=== PATIENT | female | born 1960 | race African-American/Black ===

== ENCOUNTER 2017-08-23 09:57 | Outpatient (CLI) | payer BC ==
--- NOTE | 2017-08-23 11:36 | MMO ---
BILATERAL SCREENING MAMMOGRAM: DATE: 08/23/17 HISTORY: 56-year-old female for screening mammography. COMPARISON: 06/14/16, 06/02/15, 05/01/14. FINDINGS: Bilateral MLO and CC views of the breasts show scattered fibroglandular breast tissue. There is no e vidence of suspicious mass, suspicious cluster of microcalcifications, or area of architectural dist ortion. Bilateral vascular calcifications are seen. Interpretation of this mammogram was performed with the assistance of computer-aided detection. IMPRESSION: BIRADS 2: Benign Finding(s) Annual screening mammography is recommended. POS: [facility]
== END 2017-08-23 09:58 | disposition home or self-care (01) ==
LOC: SCSMAMMO 09:57 → MAMMO 09:58
PROVIDERS: ATTEND Family Medicine
DX: Z12.31 Encounter for screening mammogram for malignant neoplasm of breast (principal)
CPT/HCPCS: 77067; G0202

== ENCOUNTER 2018-09-21 10:43 | Outpatient (CLI) | payer BC | END 2018-09-21 10:44 | disposition home or self-care (01) | LOC: BICMAMMO 10:43 | PROVIDERS: ATTEND Family Medicine | DX: Z12.31 Encounter for screening mammogram for malignant neoplasm of breast (principal) | CPT/HCPCS: 77063; 77067 ==

== ENCOUNTER 2018-12-08 10:09 | Outpatient (CLI) | payer BC ==
--- NOTE | 2018-12-08 12:12 | MRI ---
MRI LUMBAR SPINE NONCONTRAST: DATE: 12/08/18 HISTORY: 58-year-old female with ICD-10: M54.16, lumbar radicular pain. COMPARISON: none FINDINGS: There are well-circumscribed, round, T2-hyperintense masses in the mid poles of both kidneys, one on each side, each on the order of 1 cm. These are statistically most likely to represent cysts. For the purposes of this report, it will be assumed that there are 5 lumbar-type vertebrae. The vert ebral body heights are maintained. Alignment is normal. Cauda equina is arranged in a symmetrical, normal distribution throughout the th ecal sac. Conus medullaris terminates at upper L2 level. Incidentally, there is a fatty filum termina le. The findings by individual levels are as follows: T12-L1: Normal. L1-2: Normal. L2-3: Normal. L3-4: Disc space maintained. Normal disc signal. Mild disc bulge. No high grade central spinal canal stenosis. Mild thecal sac stenosis. Posterior epidural fat pad. No high grade neural foraminal steno sis. L4-5: Disc desiccation. Mild disc space narrowing. Diffuse disc bulge. Moderate bilateral neural for aminal stenosis, left greater than right. Mild to moderate central spinal canal stenosis. Lateral rec ess stenosis bilaterally, left greater than right. Bilateral mild to moderate degenerative facet hype rtrophy. L5-S1: Bilateral mild to moderate degenerative facet changes. Moderate bilateral neural foraminal st enosis, left greater than right. Disc space maintained. Disc desiccation. Diffuse, prominent disc bul ge. Superimposed central and right paracentral shallow focal disc herniation in addition to the disc bulge. The disc material indents the ventral surfaces of the bilateral S1 nerve roots at the lateral recesses, especially the right, which is deformed and compressed against the right facet complex by t he disc material. The central component of the disc herniation also indents the ventral aspect of the thecal sac, and abuts the right S2 nerve root in the thecal sac. IMPRESSION: 1. Lumbar spondylosis consisting of low grade degenerative disc disease and facet osteoarthrosis at L4-5 and L5-S1, resulting in bilateral moderate neural foraminal stenosis. 2. At L5-S1, there is high grade right lateral recess stenosis where there is impingement on the rig ht S1 nerve root at the right lateral recess by right lateral component of disc herniation which comp resses that nerve root against the right facet complex. JN R POS: [facility]
== END 2018-12-08 10:10 | disposition home or self-care (01) ==
LOC: BICMRI 10:09
PROVIDERS: ATTEND Nurse Practitioner Family
DX: M47.26 Other spondylosis with radiculopathy, lumbar region (principal); M51.16 Intervertebral disc disorders with radiculopathy, lumbar region; M48.061 Spinal stenosis, lumbar region without neurogenic claudication
CPT/HCPCS: 72148

== ENCOUNTER 2019-04-25 10:28 | Outpatient (CLI) | payer BC ==
--- NOTE | 2019-04-25 11:46 | MRI ---
Exam: MRI cervical spine without contrast HISTORY: Right-sided neck pain, x4 years.. COMPARISON: 04/05/2017. FINDINGS: Appropriate T1 marrow signal intensity of the cervical vertebra. Vertebral body height is maintained . No fracture. No significant STIR hyperintensity to suggest vertebral body edema or ligamentous injury. Straightening of normal cervical lordosis similar to the previous examination is presumed to be posit ional. Visualized brain parenchyma, cervicomedullary junction, cervical cord and the upper thoracic cord have a normal size and signal intensity. C2-C3: Central disc protrusion. Mild central canal stenosis. Neural foramina are patent. C3-C4: Broad-based disc osteophyte complex abuts the ventral thecal sac. Mild central canal stenosis. Bilaterally, neural foramina are patent. C4-C5: Broad-based disc osteophyte complex with a central/left paracentral component. Stable mass eff ect upon the ventral thecal sac. Mild flattening of the cervical cord. Stable mild to moderate central canal stenosis. Right neural foramen is patent. Mild left foraminal narrowing. C5-C6: Broad-based disc osteophyte complex abuts the thecal sac. Ventral subarachnoid space is efface d. Mild central canal stenosis. Right neural foramen is patent. Moderate left foraminal narrowing. The degree of the left foraminal stenosis appears to have progressed when compared to previous exami nation. C6-C7: Central, right paracentral disc osteophyte complex. No significant stenosis of the thecal sac. Moderate right foraminal narrowing due to degenerative change of the uncovertebral joint. Mild to moderate left foraminal narrowing due to degenerative change of the uncovertebral joint. C7-T1: No significant central canal stenosis or neural foraminal narrowing. IMPRESSION: 1. Redemonstration of multilevel degenerative changes of the cervical spine as described above. Int erval progression of moderate left foraminal narrowing at C5-C6. 2. Varying degrees of central canal stenosis as detailed above. The greatest degree of central canal stenosis appears to be at C4-C5 level where there is mild to moderate central canal stenosis. Transcribed Date/Time: 04/25/2019 1:27 PM
== END 2019-04-25 10:29 | disposition home or self-care (01) ==
LOC: TBSIIMAG 10:28
PROVIDERS: ATTEND Anesthesiology Pain Medicine
DX: M48.062 Spinal stenosis, lumbar region with neurogenic claudication (principal); M47.812 Spondylosis without myelopathy or radiculopathy, cervical region
CPT/HCPCS: 72141

== ENCOUNTER 2019-09-24 10:32 | Outpatient (CLI) | payer BC ==
--- NOTE | 2019-09-24 13:58 | MMO ---
Bilateral MAMMO Bilat Screen DDI+TOM. CLINICAL HISTORY: Patient is 58 years old and is seen for screening. The patient has no family history of breast cancer. The patient has no personal history of cancer. VIEWS: The views performed were: bilateral craniocaudal with tomosynthesis and bilateral mediolateral oblique with tomosynthesis. FILMS COMPARED: The present examination has been compared to a prior imaging study performed at [facility] on 09/21/2018. This study has been interpreted with the assistance of computer-aided detection. MAMMOGRAM FINDINGS: There are scattered fibroglandular densities. There is an asymmetry seen in the inner region of the left breast. In the right breast, there are no suspicious masses, calcifications or areas of architectural distortion. IMPRESSION: ASYMMETRY IN THE LEFT BREAST REQUIRES ADDITIONAL EVALUATION. ADDITIONAL IMAGING. THE RESULTS OF THIS EXAM WERE SENT TO THE PATIENT. ACR BI-RADS Category 0 - Incomplete: Need additional imaging evaluation. [facility] will notify the patient of the need for additional imaging services. MAMMOGRAPHY NOTE: 1. A negative mammogram report should not delay a biopsy if a dominant of clinically suspicious mass is present. 2. Approximately 10% to 15% of breast cancers are not detected by mammography. 3. Adenosis and dense breasts may obscure an underlying neoplasm. Reported by: BHAVESH MISHRA MD Electonically Signed: [id number]
== END 2019-09-24 10:33 | disposition home or self-care (01) ==
LOC: BICMAMMO 10:32
PROVIDERS: ATTEND Obstetrics & Gynecology
DX: Z12.31 Encounter for screening mammogram for malignant neoplasm of breast (principal); N64.89 Other specified disorders of breast
CPT/HCPCS: 77063; 77067

== ENCOUNTER 2019-10-04 09:36 | Outpatient (CLI) | payer BC ==
--- NOTE | 2019-10-04 10:08 | MMO ---
Left Breast MAMMO Unilat Diag DDI LT+TOM. CLINICAL HISTORY: Patient is 58 years old and is seen for diagnostic exam. The patient has no family history of breast cancer. The patient has no personal history of cancer. VIEWS: The views performed were: left craniocaudal spot compression with tomosynthesis; left mediolateral oblique spot compression with tomosynthesis; and left mediolateral with tomosynthesis. FILMS COMPARED: The present examination has been compared to prior imaging studies performed at [facility] on 09/21/2018 and 09/24/2019. This study has been interpreted with the assistance of computer-aided detection. MAMMOGRAM FINDINGS: There are scattered fibroglandular densities. Left breast asymmetry compresses out indicating benign superimposition of tissue. There are no suspicious masses, suspicious calcifications, or new areas of architectural distortion. IMPRESSION: THERE IS NO MAMMOGRAPHIC EVIDENCE OF MALIGNANCY. A ROUTINE FOLLOW-UP MAMMOGRAM IN 1 YEAR IS RECOMMENDED. THE RESULTS OF THIS EXAM WERE SENT TO THE PATIENT. ACR BI-RADS Category 2 - Benign finding MAMMOGRAPHY NOTE: 1. A negative mammogram report should not delay a biopsy if a dominant of clinically suspicious mass is present. 2. Approximately 10% to 15% of breast cancers are not detected by mammography. 3. Adenosis and dense breasts may obscure an underlying neoplasm. Reported by: Lorenzo YANCEY Electonically Signed: [id number]
== END 2019-10-04 09:37 | disposition home or self-care (01) ==
LOC: BICMAMMO 09:36
PROVIDERS: ATTEND Obstetrics & Gynecology
DX: Z12.31 Encounter for screening mammogram for malignant neoplasm of breast (principal)
CPT/HCPCS: G0279

== ENCOUNTER 2020-10-21 09:04 | Outpatient (CLI) | payer BC ==
--- NOTE | 2020-10-21 10:45 | MMO ---
Bilateral MAMMO Bilat Screen DDI+TOM. CLINICAL HISTORY: Patient is 59 years old and is seen for screening. The patient has no family history of breast cancer. The patient has no personal history of cancer. VIEWS: The views performed were: bilateral craniocaudal with tomosynthesis and bilateral mediolateral oblique with tomosynthesis. FILMS COMPARED: The present examination has been compared to prior imaging studies performed at [facility] on 09/21/2018, 09/24/2019 and 10/04/2019, and at [facility] on 08/23/2017. This study has been interpreted with the assistance of computer-aided detection. MAMMOGRAM FINDINGS: There are scattered fibroglandular densities. Benign calcifications are noted bilaterally. There are no suspicious masses, suspicious calcifications, or new areas of architectural distortion. IMPRESSION: THERE IS NO MAMMOGRAPHIC EVIDENCE OF MALIGNANCY. A ROUTINE FOLLOW-UP MAMMOGRAM IN 1 YEAR IS RECOMMENDED. THE RESULTS OF THIS EXAM WERE SENT TO THE PATIENT. ACR BI-RADS Category 2 - Benign finding MAMMOGRAPHY NOTE: 1. A negative mammogram report should not delay a biopsy if a dominant of clinically suspicious mass is present. 2. Approximately 10% to 15% of breast cancers are not detected by mammography. 3. Adenosis and dense breasts may obscure an underlying neoplasm. Reported by: MIKHAIL IQBAL MD Electonically Signed: [id number]
== END 2020-10-21 09:05 | disposition home or self-care (01) ==
LOC: BICMAMMO 09:04
PROVIDERS: ATTEND Internal Medicine
DX: Z12.31 Encounter for screening mammogram for malignant neoplasm of breast (principal)
CPT/HCPCS: 77063; 77067

== ENCOUNTER 2020-12-30 10:27 | Outpatient (CLI) | payer BC ==
--- NOTE | 2020-12-30 11:38 | MRI ---
MR the lumbar spine without contrast: 12/30/2020 History: Acute lumbar pain, low back pain radiating into the left lower extremity/radiculopathy COMPARISON: 12/08/2018 TECHNIQUE: Multiplanar multisequence MR images were obtained of lumbar spine without IV contrast FINDINGS: On the basis of 5 lumbar type vertebral bodies, conus medullaris terminates at theL1 level. Sagittal STIR imaging demonstrates no focal area of osseous marrow edema. T12-L1:Unremarkable L1-2:Unremarkable L2-3:Mild bilateral facet hypertrophy with no central canal or neural foraminal stenosis. L3-4:Mild bilateral facet hypertrophy. No significant central canal or neural foraminal stenosis. L4-5:Prominent bilateral facet hypertrophy and hypertrophy of the ligamentum flavum, right greater th an left. There is disc space narrowing with disc desiccation and mild disc bulge, slightly worsened when compared to the prior exam. There is moderate bilateral neural foraminal stenosis, right greater than left, with mild/moderate central canal stenosis, these findings slightly progressed since the 2019 exam. L5-S1:There is bilateral facet hypertrophy with disc space narrowing, disc desiccation, and mild disc bulge. There is a new annular tear in the right foraminal region. There is no significant central canal stenosis. Severe left and moderate right neural foraminal stenosis present, similar when compar ed to the prior examination. Image retroperitoneal structures demonstrates stable small bilateral upper pole renal cysts. IMPRESSION: Lumbar spine degenerative change as detailed above, most prominent at the L4-5 and L5-S1 levels.
--- NOTE | 2020-12-30 13:16 | RAD ---
LEFT HIP 2 VIEWS: Date: 12/30/2020 HISTORY: Hip pain. FINDINGS: There are arthritic changes of the hip joint with some osteophytic changes along the acetabulum witho ut any significant joint space narrowing. IMPRESSION: Mild arthritic changes of the hip. POS: [facility]
== END 2020-12-30 10:28 | disposition home or self-care (01) ==
LOC: BICMRI 10:27
PROVIDERS: ATTEND Anesthesiology Pain Medicine
DX: M51.16 Intervertebral disc disorders with radiculopathy, lumbar region (principal); M70.60 Trochanteric bursitis, unspecified hip; M16.12 Unilateral primary osteoarthritis, left hip; M47.26 Other spondylosis with radiculopathy, lumbar region
CPT/HCPCS: 72148

== ENCOUNTER 2021-05-12 13:39 | Outpatient (CLI) | payer BC | END 2021-05-12 13:40 | disposition home or self-care (01) | LOC: SCSMRI 13:39 | PROVIDERS: ATTEND Orthopaedic Surgery | DX: M70.62 Trochanteric bursitis, left hip (principal); S76.012A Strain of muscle, fascia and tendon of left hip, initial encounter ==

== ENCOUNTER 2021-11-18 08:00 | Outpatient (CLI) | payer BC | END 2021-11-18 08:01 | disposition home or self-care (01) | LOC: BICMAMMO 08:00 | PROVIDERS: ATTEND Internal Medicine | DX: Z12.31 Encounter for screening mammogram for malignant neoplasm of breast (principal) | CPT/HCPCS: 77063; 77067 ==

== ENCOUNTER 2022-06-16 08:59 | Outpatient (CLI) | payer BC | END 2022-06-16 09:00 | disposition home or self-care (01) | LOC: BICMRI 08:59 | PROVIDERS: ATTEND Nurse Practitioner Family | DX: M48.062 Spinal stenosis, lumbar region with neurogenic claudication (principal); M51.27 Other intervertebral disc displacement, lumbosacral region; M51.37 Other intervertebral disc degeneration, lumbosacral region | CPT/HCPCS: 72148 ==

== ENCOUNTER 2022-09-16 09:17 | Outpatient (CLI) | payer BC | END 2022-09-16 09:18 | disposition home or self-care (01) | LOC: BICRAD 09:17 | PROVIDERS: ATTEND Anesthesiology Pain Medicine | DX: M16.0 Bilateral primary osteoarthritis of hip (principal) ==

== ENCOUNTER 2022-12-16 09:34 | Outpatient (CLI) | payer BC | END 2022-12-16 09:35 | disposition home or self-care (01) | LOC: BICRAD 09:34 | PROVIDERS: ATTEND Neurological Surgery | DX: M47.26 Other spondylosis with radiculopathy, lumbar region (principal); M47.817 Spondylosis without myelopathy or radiculopathy, lumbosacral region | CPT/HCPCS: 72120 ==